=== PATIENT | female | born 1970 | race Caucasian/White ===

== ENCOUNTER 2017-06-29 05:51 | Emergency (ER) | payer BC ==
[2017-06-29 05:53] VITALS: BMI 49.9
[2017-06-29 06:13] VITALS: RESP 20; O2SAT 97
--- NOTE | 2017-06-29 06:24 | C.PDOC ---
History Of Present Illness Patient is a 47 y/o female who presents to the ED BIBA with complaints of cough , sore throat, body aches, and dizziness. Patient notes feeling hypertensive. Time Seen by Provider: 06/29/17 06:16 Chief Complaint (Nursing): Flu-like Symptoms History Per: Patient History/Exam Limitations: no limitations Location Of Pain: Throat, Diffuse Myalgias Associated Symptoms: Sore Throat, Cough, Myalgias Recent travel outside of the [place]: No Past Medical History Reviewed: Historical Data, Nursing Documentation, Vital Signs Vital Signs: Last Vital Signs Temp 99.0 F 06/29/17 06:03 Pulse 97 H 06/29/17 06:03 Resp 20 06/29/17 06:03 BP 143/82 06/29/17 06:03 Pulse Ox 97 06/29/17 06:57 - Medical History PMH: Gall Bladder Disease, HTN, TIA (2 years ago) Denies: Chronic Kidney Disease Surgical History: Cholecystectomy - [facility] Procedures DX ULTRASOUND-HEART (06/08/13) OTHER ESOPHAGOSCOPY (06/08/13) Family History: States: No Known Family Hx - Social History Hx Tobacco Use: Yes (light smoker) Hx Alcohol Use: No Hx Substance Use: No - Immunization History Hx Tetanus Toxoid Vaccination: Yes Hx Influenza Vaccination: No Hx Pneumococcal Vaccination: No Review Of Systems ENT: Positive for: Throat Pain Respiratory: Positive for: Cough Musculoskeletal: Positive for: Other (diffuse myalgias) Neurological: Positive for: Dizziness Physical Exam - Physical Exam Appears: Well, Non-toxic, No Acute Distress Skin: Warm, Dry Oral Mucosa: Moist Throat: Erythema (mild to pharynx) Chest: Symmetrical Cardiovascular: Rhythm Regular, No Murmur Respiratory: Normal Breath Sounds, No Rales, No Rhonchi, No Wheezing Neurological/Psych: Oriented x3, Normal Speech, Normal Cognition, Other (no focal deficits) ED Course And Treatment O2 Sat by Pulse Oximetry: 97 Medical Decision Making Medical Decision Making: Plan: * Tamiflu Patient advised to take medication as directed and to follow up with PMD if symptoms persist. Patient to be discharged. Disposition Counseled Patient/Family Regarding: Need For Followup, Rx Given - Disposition Disposition: HOME/ ROUTINE Disposition Time: 06:55 Condition: GOOD Additional Instructions: You have Influenza. Take Tamiflu twice a day for 5 days Take Tylenol or Motrin alternating every 4-6 hours for Fever 100.4F or higher. Rest and drink plenty of fluids. Follow up with your primary medical doctor or clinic in 2-5 days for further evaluation. Prescriptions: Ondansetron ODT [Zofran ODT] 1 odt PO BID PRN #6 odt PRN Reason: Nausea/Vomiting Oseltamivir [Tamiflu] 75 mg PO BID #10 cap Instructions: Influenza (ED) Forms: [facility] (Lithuanian) - POA Present On Arrival: None - Clinical Impression Clinical Impression: Influenza - Scribe Statement The provider has reviewed the documentation as recorded by the Scribe Lyly Pool All medical record entries made by the Scribe were at my direction and personally dictated by me. I have reviewed the chart and agree that the record accurately reflects my personal performance of the history, physical exam, medical decision making, and the department course for this patient. I have also personally directed, reviewed, and agree with the discharge instructions and disposition.
[2017-06-29 07:13] VITALS: BP 128/78; PULSE 91; TEMP 98.1
== END 2017-06-29 07:13 | disposition home or self-care (01) ==
LOC: C.ER 05:51
DX: J11.1 Influenza due to unidentified influenza virus with other respiratory manifestations (principal); I10 Essential (primary) hypertension; F17.210 Nicotine dependence, cigarettes, uncomplicated

== ENCOUNTER 2018-04-26 13:40 | Inpatient (IN) | payer BC ==
[2018-04-26 13:40] VITALS: BMI 49.9
--- NOTE | 2018-04-26 14:23 | C.PDOC ---
History Of Present Illness 48 year old female with PMHx of IBS, depression, HTN and sciatica, presents to the ED complaining of burning and throbbing abdominal pain with associated chills, diarrhea and vomiting since yesterday at 15:00. Reports the pain feels like when she has IBS but worse and it started after she ate turkey and sweet potatoes. Denies any chest pain, shortness of breath, fever, urinary symptoms, chest pain, back pain, or any other complaints. PMD: Dr. Mcmanus Time Seen by Provider: 04/26/18 14:19 Chief Complaint (Nursing): Abdominal Pain History Per: Patient History/Exam Limitations: no limitations Onset/Duration Of Symptoms: Days (1) Current Symptoms Are (Timing): Still Present Context: Food Location Of Pain/Discomfort: Epigastric, LUQ Radiation Of Pain To:: None Quality Of Discomfort: Burning, Other (throbbing ) Associated Symptoms: Chills, Vomiting. denies: Fever, Nausea, Diarrhea, Back Pain, Chest Pain, Constipation, Urinary Symptoms Past Medical History Reviewed: Historical Data, Nursing Documentation, Vital Signs Vital Signs: Last Vital Signs Temp 98.9 F 04/26/18 13:54 Pulse 114 H 04/26/18 13:54 Resp 20 04/26/18 13:54 BP 135/80 04/26/18 13:54 Pulse Ox 96 04/26/18 13:54 - Medical History PMH: Gall Bladder Disease, HTN, TIA (2 years ago) Denies: Chronic Kidney Disease Other PMH: IBS Surgical History: Cholecystectomy - [facility] Procedures DX ULTRASOUND-HEART (06/08/13) OTHER ESOPHAGOSCOPY (06/08/13) Family History: States: No Known Family Hx - Social History Hx Tobacco Use: Yes (light smoker) Hx Alcohol Use: No Hx Substance Use: No - Immunization History Hx Tetanus Toxoid Vaccination: Yes Hx Influenza Vaccination: No Hx Pneumococcal Vaccination: No Review Of Systems Constitutional: Positive for: Chills. Negative for: Fever Cardiovascular: Negative for: Chest Pain Respiratory: Negative for: Shortness of Breath Gastrointestinal: Positive for: Nausea, Vomiting, Abdominal Pain (epigastric and LUQ). Negative for: Diarrhea, Constipation, Melena, Hematemesis Genitourinary: Negative for: Dysuria, Hematuria Musculoskeletal: Negative for: Back Pain Physical Exam - Physical Exam Appears: Non-toxic Skin: Warm, Dry, No Rash Head: Normacephalic Eye(s): bilateral: Normal Inspection Nose: Normal Oral Mucosa: Moist Neck: Supple Chest: Symmetrical Cardiovascular: Rhythm Regular Respiratory: No Rales, No Rhonchi, No Wheezing Gastrointestinal/Abdominal: Soft, Tenderness (epigastric and LUQ), No Distention, No Guarding, No Rebound Extremity: Bilateral: Atraumatic, Normal Color And Temperature, Normal ROM Pulses: Left Dorsalis Pedis: Normal, Right Dorsalis Pedis: Normal Neurological/Psych: Oriented x3, Normal Speech Gait: Steady ED Course And Treatment - Laboratory Results Result Diagrams: 04/26/18 15:07 04/26/18 15:07 O2 Sat by Pulse Oximetry: 96 (RA) Pulse Ox Interpretation: Normal Reevaluation Time: 15:40 Reassessment Condition: Improved Medical Decision Making Medical Decision Makin yr old female w/ hx of IBS, sciatica p/w abdominal pain, diarrhea, n/v. Multiple episodes. Does not feel like her previous IBS. Well appearing on exam. No recent abx. ?viral gastro Orders: - CT abd/pel - Bloodwork - Toradol 30mg IVP - Zofran 4mg IVP - IV fluids - POC - UA WBC 21k- non septic appearing however. BC ordered fluids running. 1702 Lactic unremarkable UTI 9 CT largely unremarkable: ?cirrhosis- however no ascities on exam. Urine culture ordered xray unremarkable abx running Clinically pt is stable, non sick appearing. Given WBC elevated however, will seek obs appreciate consult w/ DR. Mendoza: to admit to his service pt agreeable Disposition - Disposition Disposition Time: 17:50 Condition: GOOD Forms: [facility] (Ugandan) - Clinical Impression Clinical Impression: UTI (urinary tract infection), Gastritis - Scribe Statement The provider has reviewed the documentation as recorded by the Scribe Sirena Larkin All medical record entries made by the Scribe were at my direction and personally dictated by me. I have reviewed the chart and agree that the record accurately reflects my personal performance of the history, physical exam, medical decision making, and the department course for this patient. I have also personally directed, reviewed, and agree with the discharge instructions and disposition.
[2018-04-26 15:10] LABS: BASO # 0.1 K/uL (0.0-0.2); BASO % 0.3 % (0.0-2.0); EOS % 0.1 % (0.0-4.0); HEMOGLOBIN 15.5 g/dL (11.0-16.0); LYMPH # 2.5 K/uL (1.0-4.3); LYMPH % 11.4 % (20.0-40.0); MEAN CELL VOLUME 83.1 fL (81.0-99.0); MEAN CORPUSCULAR HEMOGLOBIN 28.2 pg (27.0-31.0); MEAN CORPUSCULAR HGB CONC 33.9 g/dL (33.0-37.0); MEAN PLATELET VOLUME 8.3 fL (7.2-11.7); MONO # 0.6 K/uL (0.0-0.8); MONO % 2.6 % (0.0-10.0); NEUT # 18.5 K/uL (1.8-7.0); NEUT % 85.6 % (50.0-75.0); NRBC % 0.1 % (0.0-2.0); RBC 5.48 Mil/uL (3.80-5.20); RED CELL DISTRIBUTION WIDTH 15.1 % (11.5-14.5)
[2018-04-26 15:18] LABS: WHITE BLOOD COUNT 21.6 K/uL (4.8-10.8)
[2018-04-26] MEDS: Sodium Chloride 0.9% 1,000 ML IV SCH (15:18)
[2018-04-26 15:24] LABS: ALB/GLOB RATIO 0.9 (1.0-2.1); ALBUMIN 4.3 g/dL (3.5-5.0); ALT/SGPT 58 U/L (9-52); AST/SGOT 47 U/L (14-36); BLOOD UREA NITROGEN 29 mg/dL (7-17); GFR NON-AFRICAN AMERICAN 59; LIPASE 52 U/L (23-300)
[2018-04-26] MEDS ORDERED: Iodixanol 320 MG/ML 100 ML BOTTLE IV ONE (15:30)
[2018-04-26 16:27] LABS: VENOUS BLOOD GAS BASE EXCESS 0.3 mmol/L (0.0-2.0); VENOUS BLOOD GAS PCO2 48 mmHg (40-60); VENOUS BLOOD GAS PO2 30 mm/Hg (30-55); VENOUS BLOOD PH 7.35 (7.32-7.43)
[2018-04-26] MEDS ORDERED: Iohexol 350mg/ml 100 ML ONE (16:32)
[2018-04-26 16:38] LABS: SQUAMOUS EPITHIAL 55 /hpf (0-5); URINE BACTERIA MANY (<OCC); URINE BILIRUBIN 1+ (NEGATIVE); URINE BLOOD NEGATIVE (NEGATIVE); URINE CLARITY Hazy (Clear); URINE COLOR Amber (YELLOW); URINE GLUCOSE (UA) NORMAL (Normal); URINE LEUKOCYTE ESTERASE 2+ Leu/uL (Negative); URINE PROTEIN 2+ mg/dL (NEGATIVE); WBC CLUMPS FEW /hpf
[2018-04-26] MEDS ORDERED: cefTRIAXone IV 1 gm in Dextros 50 ML IVPB STA (17:01)
--- NOTE | 2018-04-26 17:03 | CT ---
Date of service: 04/26/2018 PROCEDURE: CT Abdomen and Pelvis with contrast HISTORY: abd pain, epigastric, luq, diarrhea COMPARISON: None. TECHNIQUE: Contrast dose: 100 mL Omnipaque 350 Radiation dose: Total exam DLP = 1066.46 mGy-cm. This CT exam was performed using one or more of the following dose reduction techniques: Automated exposure control, adjustment of the mA and/or kV according to patient size, and/or use of iterative reconstruction technique. FINDINGS: LOWER THORAX: Unremarkable. LIVER: Mildly nodular hepatic contour raising the possibility of hepatic cirrhosis. No mass. No biliary dilatation. GALLBLADDER AND BILE DUCTS: Cholecystectomy PANCREAS: Unremarkable. No gross lesion or ductal dilatation. SPLEEN: Unremarkable. ADRENALS: Unremarkable. No mass. KIDNEYS AND URETERS: Unremarkable. No hydronephrosis. No solid mass. VASCULATURE: Unremarkable. No aortic aneurysm. No aortic atherosclerotic calcification or mural plaque present. BOWEL: There is circumferential mural thickening of multiple loops of small bowel in the mid abdomen and left abdomen consistent with nonspecific enteritis. There is no bowel obstruction. No other abnormal bowel loops are appreciated. APPENDIX: Normal appendix. PERITONEUM: Mild ascites. LYMPH NODES: Unremarkable. No enlarged lymph nodes. BLADDER: Decompressed REPRODUCTIVE: Hysterectomy BONES: No acute fracture. OTHER FINDINGS: None. IMPRESSION: Possible hepatic cirrhosis. Nonspecific enteritis. Mild ascites. Cholecystectomy and hysterectomy.
[2018-04-26] MEDS ORDERED: cefTRIAXone 1 gm 1 GM/100 ML BAG IVPB ONE (17:10)
--- NOTE | 2018-04-26 18:14 | RAD ---
Date of service: 04/26/2018 HISTORY: elveated wbc COMPARISON: 03/05/2016 TECHNIQUE: Chest PA and lateral FINDINGS: LUNGS: No active pulmonary disease. PLEURA: No significant pleural effusion identified. No pneumothorax apparent. CARDIOVASCULAR: No aortic atherosclerotic calcification present. Normal cardiac size. No pulmonary vascular congestion. OSSEOUS STRUCTURES: No significant abnormalities. VISUALIZED UPPER ABDOMEN: Normal. OTHER FINDINGS: None. IMPRESSION: No active disease.
[2018-04-26] MEDS: metroNIDAZOLE IV 500 mg/100 ml 500 MG/100 ML BAG IVPB SCH (20:00)
[2018-04-26] MEDS ORDERED: metroNIDAZOLE IV 500 mg/100 ml 500 MG/100 ML BAG ONE (20:05)
[2018-04-26] MEDS: Dextrose 5%/0.45% NS 1,000 ML IV SCH (22:33)
[2018-04-27] MEDS: Sodium Chloride 0.9% 1,000 ML IV SCH (01:35)
[2018-04-27] MEDS: metroNIDAZOLE IV 500 mg/100 ml 500 MG/100 ML BAG IVPB SCH ×3 (04:08→19:33)
[2018-04-27 05:26] LABS: BASO # 0.1 K/uL (0.0-0.2); BASO % 0.7 % (0.0-2.0); EOS # 0.2 K/uL (0.0-0.7); EOS % 1.2 % (0.0-4.0); LYMPH # 3.9 K/uL (1.0-4.3); LYMPH % 23.4 % (20.0-40.0); MEAN CELL VOLUME 83.7 fL (81.0-99.0); MEAN CORPUSCULAR HEMOGLOBIN 27.5 pg (27.0-31.0); MEAN CORPUSCULAR HGB CONC 32.9 g/dL (33.0-37.0); MEAN PLATELET VOLUME 8.3 fL (7.2-11.7); MONO # 0.9 K/uL (0.0-0.8); MONO % 5.5 % (0.0-10.0); NEUT # 11.5 K/uL (1.8-7.0); NEUT % 69.2 % (50.0-75.0); RBC 4.37 Mil/uL (3.80-5.20); RED CELL DISTRIBUTION WIDTH 15.3 % (11.5-14.5); WHITE BLOOD COUNT 16.7 K/uL (4.8-10.8)
[2018-04-27] MEDS: Dextrose 5%/0.45% NS 1,000 ML IV SCH ×2 (05:30→19:12)
[2018-04-27 05:54] LABS: ALBUMIN 3.4 g/dL (3.5-5.0); ALT/SGPT 64 U/L (9-52); AST/SGOT 61 U/L (14-36); BLOOD UREA NITROGEN 29 mg/dL (7-17); CALCIUM 7.8 mg/dl (8.6-10.4); GFR NON-AFRICAN AMERICAN > 60
[2018-04-27] MEDS ORDERED: Potassium Ch 20mEq in D5-1/2NS 1,000 ML IV SCH (07:45)
[2018-04-27] MEDS: cefTRIAXone IV 1 gm in Dextros 50 ML IVPB SCH (10:41)
[2018-04-27 16:58] LABS: INR 1.2; PROTHROMBIN TIME 13.5 SECONDS (9.7-12.2)
[2018-04-27 17:05] LABS: AMYLASE 48 U/L (30-110); LIPASE 64 U/L (23-300)
--- NOTE | 2018-04-27 20:04 | CON ---
DATE: 04/27/2018 REFERRING PHYSICIAN: Binta Mendoza MD. SUBJECTIVE: I was called for a GI consultation by the admitting MD. The patient is seen and fully examined in the emergency room as requested also by the ER staff on 04/27/2018. The entire chart is reviewed including but not limited to most recent lab and radiology study results, current and the previous medication list, current and the previous medical events. Case discussed with the staff at length. HISTORY OF PRESENT ILLNESS: This 48-year-old female was admitted to the hospital through the emergency room with a main complaint of severe midepigastric pain, burning in nature with with nausea, vomiting, dyspepsia, chills and diarrhea with generalized weakness and malaise for the last several hours prior to her admission. On record, the patient denied any actual chest pain, palpitation, significant shortness of breath, chills or fever initially. No reported active bleeding. PAST MEDICAL HISTORY: The past medical history including but not limited to, 1. Hypertension. 2. Gall bladder disorder. 3. Reported irritable bowel syndrome. 4. Depression 5. Peptic ulcer disease. 6. Sciatica. 7. Reported TIA 2 years ago with mild obesity. 8. The patient has status post cholecystectomy. 9. The last endoscopic evaluation of the lower GI tract done about 5-6 years ago according to the patient's statement to with possible small few diverticula, done in one of the [facility]. CURRENT MEDICATIONS: Post admission medication lists were reviewed. SOCIAL HISTORY: Positive for cigarette smoking, but no alcohol intake recently. LABORATORY DATA: Initial blood workup at the time of the admission showed leukocytosis of 21.6 which went down today to about 16 with subsequent drop of hemoglobin and hematocrit mildly with IV fluids and IV antibiotics. Initial blood workup also so showed elevated blood glucose level 167, BUN 29, creatinine 1. The abdominal and pelvic CT scan showed possible and questionable liver cirrhosis. Urine analysis was for possible urinary tract infection. PHYSICAL EXAMINATION: GENERAL: A 48-year-old female, awake, alert, oriented. VITAL SIGNS: Afebrile at the time she was seen by me with pulse of 102, respiratory rate 20-22, blood pressure 130/74. The patient is still complaining of midepigastric pain, severe and such with left and right lower quadrant tenderness. HEENT: Showed mildly dry oral mucous membrane. Nonicteric sclerae. LUNGS: Few scattered mild crepitation. Breathing sounds are present to bilaterally. HEART: Positive S1 and S2 with increased rate. ABDOMEN: Mildly obese, mildly distended with diffuse tenderness but mainly severe at the midepigastric area as well as left lower quadrant area. No mass or organomegaly could be appreciated, however, and no rebound tenderness or guarding. RECTAL EXAMINATION: Rectal vault empty. EXTREMITIES: Without significant clubbing, cyanosis or edema. NEUROLOGIC: No reported new neurological deficits, sensory or motor. No reported new focal deficits. It has to be mentioned that on admission the patient was found to have elevated liver function test of ALT and AST as well as some abnormal alkaline phosphatase results. IMPRESSION: 1. Re-exacerbation of peptic ulcer disease, acute, to rule out gastric versus duodenal ulcer. 2 Rule out acute pancreatitis with possible biliary tree disorder despite the outcome of the CAT scan of the abdomen and pelvis. 3. Diarrhea, infectious versus mechanical keeping in mind that the patient was diagnosed several years ago of possible diverticulosis as per her description with possible acute diverticulitis versus re-exacerbation of inflammatory bowel disease. 4. Known history of hypertension, status post cholecystectomy, transient ischemic attack, depression with sciatica. 5. Abnormal liver function tests to rule out possible chemical hepatitis versus viral hepatitis, however, abnormal liver function test could be secondary to infectious process as the patient did have leukocytosis. 6. Reported possible liver cirrhosis by CAT scan of the abdomen and pelvis of unclear etiology. SUGGESTIONS: 1. Agree with your plan. 2. Hepatitis profile. 3. Cancer markers. 4. Complete stool workup. 5. Ammonia level. 6. At current n.p.o. 7. Reglan IV. 8. Endoscopic evaluation of the GI tract when the patient is more stable clinically. 9. Further recommendation to follow. Thank you for letting me participate in your patient's case management. Elizabeth Kennedy MD
[2018-04-27] MEDS: Potassium Ch 20mEq in D5-1/2NS 1,000 ML IV SCH (21:40)
[2018-04-28] MEDS: metroNIDAZOLE IV 500 mg/100 ml 500 MG/100 ML BAG IVPB SCH ×3 (03:26→18:30)
[2018-04-28] MEDS ORDERED: Pneumococcal 23-Valent Vaccine IM ONE (06:32)
[2018-04-28 07:55] LABS: HEPATITIS B SURFACE AG Negative (NEGATIVE)
[2018-04-28 08:01] LABS: HEPATITIS A IGM NEGATIVE (NEGATIVE); HEPATITIS B CORE AB NEGATIVE (NEGATIVE)
[2018-04-28 08:13] LABS: HEPATITIS C ANTIBODY NEGATIVE (NEGATIVE)
[2018-04-28] MEDS: Potassium Ch 20mEq in D5-1/2NS 1,000 ML IV SCH ×2 (09:11→17:36)
[2018-04-28] MEDS: buPROPion 150 mg/24 Hours XL Tab PO SCH (09:15)
[2018-04-28] MEDS: Vancomycin 1.5 GM in Sodium Chloride 0.9% 500 ML IVPB SCH ×2 (10:55→22:00)
[2018-04-28] MEDS: cefTRIAXone IV 1 gm in Dextros 50 ML IVPB SCH (11:22)
[2018-04-28 11:37] LABS: HDL CHOLESTEROL 36 mg/dL (30-70)
[2018-04-28 11:48] LABS: LDL CHOLESTEROL 88 mg/dL (0-129)
[2018-04-28 12:15] LABS: ALPHA FETO PROTEIN 2.5 ng/mL (0.0-7.5)
[2018-04-28 12:29] LABS: HIV 1&2 ANTIBODY NEGATIVE (NEGATIVE)
[2018-04-28] MEDS ORDERED: Propofol 10 mg/ml Inj (20 ML) ONE (12:31)
[2018-04-28] MEDS ORDERED: Lidocaine Hydrochloride 5 ML INJ ONE (12:31)
--- NOTE | 2018-04-28 12:58 | CP.PCM.PN ---
Subjective - Date & Time of Evaluation Date of Evaluation: 04/28/18 Time of Evaluation: 13:04 - Subjective Subjective: PGY3 Note for Dr. Watson Patient seen and examined at bedside this AM; denies all complaints; states belly pain is improved and has not had any episodes of diarrhea; denies fevers/chills, DAVIDSON, CP, SOB, or lower extremity pain/swelling. Objective - Vital Signs/Intake and Output Vital Signs (last 24 hours): Temp Pulse Resp BP Pulse Ox 98.6 F 86 20 114/81 97 04/28/18 07:28 04/28/18 07:28 04/28/18 07:28 04/28/18 07:28 04/28/18 07:28 Intake and Output: 04/28/18 04/28/18 06:59 18:59 Intake Total 800 Balance 800 - Medications Medications: Current Medications Bupropion HCl (Wellbutrin Xl) 300 mg PO DAILY [facility] Last Admin: 04/28/18 09:15 Dose: Not Given Dicyclomine HCl (Bentyl) 20 mg PO QID [facility] Last Admin: 04/28/18 09:16 Dose: Not Given Famotidine (Pepcid) 20 mg IVP DAILY [facility] Last Admin: 04/28/18 09:09 Dose: 20 mg Metronidazole (Flagyl) 500 mg in 100 mls @ 100 mls/hr IVPB Q8H [facility]; Protocol Last Admin: 04/28/18 11:23 Dose: Not Given Ceftriaxone Sodium (Rocephin Iv 1 Gm Duplex) 50 mls @ 100 mls/hr IVPB DAILY [facility]; Protocol Last Admin: 04/28/18 11:22 Dose: Not Given Potassium Chloride/Dextrose/Sod Cl (Potassium Chl 20 Meq In D5-1/2ns) 1,000 mls @ 100 mls/hr IV .Q10H [facility] Last Admin: 04/28/18 09:11 Dose: Not Given Vancomycin HCl 1.5 gm/ Sodium (Chloride) 500 mls @ 167 mls/hr IVPB Q12 [facility]; Protocol Last Admin: 04/28/18 10:55 Dose: 167 mls/hr Gentamicin Sulfate/Sodium Chloride (Gentamicin 100mg/100ml Ns) 100 mg in 100 mls @ 100 mls/hr IVPB Q8H [facility]; Protocol Metoclopramide HCl (Reglan) 5 mg IVP Q6H [facility] Ondansetron HCl (Zofran Inj) 4 mg IVP Q6 PRN PRN Reason: Nausea/Vomiting Last Admin: 04/27/18 14:30 Dose: 4 mg Pantoprazole Sodium (Protonix Inj) 40 mg IVP DAILY [facility] Last Admin: 04/28/18 09:09 Dose: 40 mg - Labs Labs: 04/27/18 05:21 04/27/18 05:21 PT 13.5 SECONDS (9.7-12.2) H 04/27/18 16:47 INR 1.2 04/27/18 16:47 APTT 30 SECONDS (21-34) 04/27/18 16:47 - Constitutional Appears: Well, Non-toxic, No Acute Distress - Head Exam Head Exam: ATRAUMATIC - Eye Exam Eye Exam: EOMI, Normal appearance, PERRL Pupil Exam: PERRL - ENT Exam ENT Exam: Mucous Membranes Moist - Neck Exam Neck Exam: Full ROM, Lymphadenopathy - Respiratory Exam Respiratory Exam: Clear to Ausculation Bilateral, NORMAL BREATHING PATTERN. absent: Rales, Rhonchi, Wheezes - Cardiovascular Exam Cardiovascular Exam: REGULAR RHYTHM, +S1, +S2 - GI/Abdominal Exam GI & Abdominal Exam: Soft, Normal Bowel Sounds - Extremities Exam Extremities Exam: Full ROM. absent: Calf Tenderness - Back Exam Back Exam: CVA tenderness (L), NORMAL INSPECTION - Neurological Exam Neurological Exam: Alert, Awake, Normal Gait, Oriented x3 - Skin Skin Exam: Warm Assessment and Plan - Assessment and Plan (Free Text) Assessment: 48yo F admitted for abdominal pain, and diarrhea Abdominal Pain -LFTs mildly elevated -normal AFP, CEA, Lipid Panel WNL, HIV neg, RPR negative, Hep Panel negative -flu negative -patient has known history of IBS; diarrhea type; metronidazole 500mg daily -patient NPO for procedure with Dr. Gonzalez, GI; thank you for your help Elevated AST/ALT with radiographic evidence of cirrhosis -f/u alpha antitrypsin, PORFIRIO, Mitochondrial, smooth muscle, copper/ceruloplasmin -nonsmoker, no history of liver disorders in family Gram + Bacteremia -Vanco 1.5g daily -f/u repeat bcx -wbc downtrending Hx of HTN -held bp meds on admission Hx of Depression -c/w buproprion daily Proph -PUD-->protonix -Heparin SC Case discussed and seen with Dr. Kelly Carcamo PGY3
[2018-04-28] MEDS: Gentamicin 100mg/100ml NS 100 MG/100 ML BAG IVPB SCH ×2 (14:34→21:00)
[2018-04-28 15:52] VITALS: RESP 20
--- NOTE | 2018-04-28 20:53 | CP.PCM.CON ---
History of Present Illness - History of Present Illness History of Present Illness: dictated Past Patient History - Past Medical History & Family History Past Medical History?: Yes - Past Social History Smoking Status: Never Smoked - CARDIAC Hx Hypertension: Yes - PULMONARY Hx Respiratory Disorders: No - NEUROLOGICAL Hx Transient Ischemic Attacks (TIA): Yes (2 years ago) - HEENT Hx HEENT Problems: No - RENAL Hx Chronic Kidney Disease: No - ENDOCRINE/METABOLIC Hx Endocrine Disorders: No - HEMATOLOGICAL/ONCOLOGICAL Hx Blood Disorders: No - INTEGUMENTARY Hx Dermatological Problems: No - MUSCULOSKELETAL/RHEUMATOLOGICAL Hx Falls: No - GASTROINTESTINAL Hx Gall Bladder Disease: Yes - GENITOURINARY/GYNECOLOGICAL Hx Genitourinary Disorders: No - PSYCHIATRIC Hx Substance Use: No - SURGICAL HISTORY Hx Cholecystectomy: Yes - ANESTHESIA Hx Anesthesia: Yes Hx Anesthesia Reactions: No Meds Allergies/Adverse Reactions: Allergies Allergy/AdvReac Type Severity Reaction Status Date / Time ciprofloxacin [From Cipro] Allergy throat Verified 04/26/18 13:57 swelling - Medications Medications: Current Medications Bupropion HCl (Wellbutrin Xl) 300 mg PO DAILY [facility] Last Admin: 04/28/18 09:15 Dose: Not Given Dicyclomine HCl (Bentyl) 20 mg PO QID [facility] Last Admin: 04/28/18 17:36 Dose: 20 mg Famotidine (Pepcid) 20 mg IVP DAILY [facility] Last Admin: 04/28/18 09:09 Dose: 20 mg Heparin Sodium (Porcine) (Heparin) 5,000 units SC Q8 [facility] Last Admin: 04/28/18 14:06 Dose: 5,000 units Hydrochlorothiazide (Hydrodiuril) 25 mg PO DAILY [facility] Metronidazole (Flagyl) 500 mg in 100 mls @ 100 mls/hr IVPB Q8H [facility]; Protocol Last Admin: 04/28/18 18:30 Dose: 100 mls/hr Potassium Chloride/Dextrose/Sod Cl (Potassium Chl 20 Meq In D5-1/2ns) 1,000 mls @ 100 mls/hr IV .Q10H [facility] Last Admin: 04/28/18 17:36 Dose: 100 mls/hr Vancomycin HCl 1.5 gm/ Sodium (Chloride) 500 mls @ 167 mls/hr IVPB Q12 [facility]; Protocol Last Admin: 04/28/18 10:55 Dose: 167 mls/hr Gentamicin Sulfate/Sodium Chloride (Gentamicin 100mg/100ml Ns) 100 mg in 100 mls @ 100 mls/hr IVPB Q8H [facility]; Protocol Last Admin: 04/28/18 14:34 Dose: 100 mls/hr Lisinopril (Zestril) 20 mg PO DAILY [facility] Metoclopramide HCl (Reglan) 5 mg IVP Q6H [facility] Last Admin: 04/28/18 18:35 Dose: 5 mg Ondansetron HCl (Zofran Inj) 4 mg IVP Q6 PRN PRN Reason: Nausea/Vomiting Last Admin: 04/27/18 14:30 Dose: 4 mg Pantoprazole Sodium (Protonix Inj) 40 mg IVP DAILY [facility] Last Admin: 04/28/18 09:09 Dose: 40 mg Results - Vital Signs Recent Vital Signs: Last Vital Signs Temp 98.5 F 04/28/18 15:00 Pulse 90 04/28/18 15:00 Resp 20 04/28/18 15:00 BP 124/78 04/28/18 15:00 Pulse Ox 96 04/28/18 15:00 - Labs Result Diagrams: 04/27/18 05:21 04/27/18 05:21 Labs: Laboratory Results - last 24 hr 04/27/18 04/28/18 04/28/18 16:47 11:19 11:19 Triglycerides 113 D Cholesterol 147 LDL Cholesterol Direct 88 HDL Cholesterol 36 Alpha Fetoprotein 2.5 RPR Hepatitis A IgM Ab Negative Hep Bs Antigen Negative Hep B Core IgM Ab Negative Hepatitis C Antibody Negative HIV 1&2 Antibody Screen Negative 04/28/18 11:19 Triglycerides Cholesterol LDL Cholesterol Direct HDL Cholesterol Alpha Fetoprotein RPR Nonreactive Hepatitis A IgM Ab Hep Bs Antigen Hep B Core IgM Ab Hepatitis C Antibody HIV 1&2 Antibody Screen
[2018-04-29] MEDS: metroNIDAZOLE IV 500 mg/100 ml 500 MG/100 ML BAG IVPB SCH ×3 (02:39→19:00)
[2018-04-29] MEDS: Potassium Ch 20mEq in D5-1/2NS 1,000 ML IV SCH ×3 (03:30→13:35)
--- NOTE | 2018-04-29 04:37 | CON ---
DATE: 04/28/2018 I was called in for positive blood cultures. HISTORY OF PRESENT ILLNESS: This patient is a 48-year-old female. She has history of irritable bowel disease, depression, hypertension, and sciatica. She came in with burning abdominal pain associated with chills and diarrhea, and she was vomiting. She reported the pain, which was worse, as she has had IBS and had similar pain before. She was admitted on 04/26/2018 with history of eating turkey and sweet potatoes and started with having diarrhea and vomiting. She denied any fever, did complain of some chills. Denies any chest pain. No back pain. No shortness of breath. Did have some abdominal pain. Denies any fever. The patient has positive blood cultures, hence I am asked to see her. She came in with epigastric pain. She also complains of some suprapubic pain. Denied any frequency or urgency with urination, but she was afebrile, but admitted with heart rate of 114, blood pressure 135/80, and pulse oximetry of 96. PAST MEDICAL HISTORY: Significant for gallbladder disease, hypertension, TIA, and history of fibroids. Denies any chronic kidney disease. PAST SURGICAL HISTORY: Significant for cholecystectomy. SOCIAL HISTORY: She is a light smoker. Denies alcohol abuse. Denies substance abuse. FAMILY HISTORY: Noncontributory. REVIEW OF SYSTEMS: She has not had any flu vaccine so far. She had chills. No fever. No headaches. No swallowing problems. No respiratory issues. No shortness of breath. Did have nausea, vomiting, and abdominal pain. No diarrhea. No constipation. No melena. Denies any urinary symptoms, but she has had UTIs in the past. Denies any joint pains. PHYSICAL EXAMINATION: VITALS SIGNS: Show T-max is 98.5 today, heart rate of 90, blood pressure 124/78, and respirations are 20. She is morbidly obese. Her weight is 300 pounds. HEENT: Head is atraumatic, normocephalic. Pupils are reacting to light. No pallor present. No icterus. Tongue is moist. NECK: Supple. JVP is flat. LUNGS: Clear. No crackles or rales are present. HEART: S1, S2, regular. No murmurs appreciated. ABDOMEN: Soft. Mild epigastric and left upper quadrant tenderness present. No guarding, no rigidity present. Mild suprapubic tenderness present. EXTREMITIES: No edema, clubbing, or cyanosis. LABORATORY DATA: Her white count is 21.6, hemoglobin 15.5, hematocrit 45.6, and platelet count of 351. BUN is 29, creatinine is 1, glucose is 167, and she had . White count and lactic acid were unremarkable, but also she had septic workup done and blood cultures have now come back two sets positive. Urine culture is negative. On exam of the labs, white count yesterday was 16.7, hemoglobin 12, hematocrit 36.6, and platelet count was 241. UA shows 2+ leukocytes, WBC 146, RBC 12. Chemistry shows potassium was 3.3, should be repeated tomorrow. LFTs are mildly elevated. She also had a chest x-ray done. Chest x-ray shows no active disease. The other report we were looking for, abdominal and pelvic CT, which shows there is circumferential mural thickening of multiple loops of small bowel in the mid abdomen and left abdomen, consistent with nonspecific enteritis. There is no bowel obstruction. No other abnormal bowel loops are appreciated. ASSESSMENT AND PLAN: Possible hepatic cirrhosis, nonspecific enteritis, mild ascites, cholecystectomy, and hysterectomy. On examination, she did come with high white count and left shift of the neutrophils, has nonspecific enteritis. She suffers from irritable bowel disease, but since she has elevated white count, we should do stool studies and I have put her on these cultures. I had put her on gentamicin and vancomycin, but at that time when I was dictating my final report, I find that the blood cultures, one of them has Staphylococcus epidermidis. If the other one also has Staphylococcus epidermidis and she does not have any metal or any surgery with prosthetic hardware or other issues, then probably I can discontinue gentamicin. At the present time, I will continue all the antibiotics as ordered and need to monitor white count and follow the white count as it remains elevated due to nonspecific enteritis. We will follow up. Nahomy Mata MD
[2018-04-29] MEDS: Gentamicin 100mg/100ml NS 100 MG/100 ML BAG IVPB SCH ×2 (05:17→14:24)
--- NOTE | 2018-04-29 09:16 | CP.PCM.PN ---
Subjective - Date & Time of Evaluation Date of Evaluation: 04/29/18 Time of Evaluation: 08:00 - Subjective Subjective: Progress Note for Dr. Watson Patient seen and examined at bedside this AM. Patient denies states she continues to have upper abdominal pain but it has improved since her admission. She states she continues to have episodes of diarrhea. She denies fever, chills, chest pain, shortness of breath, nausea, vomiting, dysuria or hematuria. Objective - Vital Signs/Intake and Output Vital Signs (last 24 hours): Temp Pulse Resp BP Pulse Ox 99 F 85 20 122/78 95 04/28/18 23:23 04/28/18 23:23 04/28/18 23:23 04/28/18 23:23 04/28/18 23:23 Intake and Output: 04/29/18 04/29/18 06:59 18:59 Intake Total 950 Balance 950 - Medications Medications: Current Medications Bupropion HCl (Wellbutrin Xl) 300 mg PO DAILY [facility] Last Admin: 04/28/18 09:15 Dose: Not Given Dicyclomine HCl (Bentyl) 20 mg PO QID [facility] Last Admin: 04/28/18 21:22 Dose: 20 mg Famotidine (Pepcid) 20 mg IVP DAILY [facility] Last Admin: 04/28/18 09:09 Dose: 20 mg Heparin Sodium (Porcine) (Heparin) 5,000 units SC Q8 [facility] Last Admin: 04/29/18 05:17 Dose: 5,000 units Hydrochlorothiazide (Hydrodiuril) 25 mg PO DAILY [facility] Metronidazole (Flagyl) 500 mg in 100 mls @ 100 mls/hr IVPB Q8H [facility]; Protocol Last Admin: 04/29/18 02:39 Dose: 100 mls/hr Potassium Chloride/Dextrose/Sod Cl (Potassium Chl 20 Meq In D5-1/2ns) 1,000 mls @ 100 mls/hr IV .Q10H [facility] Last Admin: 04/29/18 03:30 Dose: Not Given Vancomycin HCl 1.5 gm/ Sodium (Chloride) 500 mls @ 167 mls/hr IVPB Q12 [facility]; Protocol Last Admin: 04/28/18 22:00 Dose: 167 mls/hr Gentamicin Sulfate/Sodium Chloride (Gentamicin 100mg/100ml Ns) 100 mg in 100 mls @ 100 mls/hr IVPB Q8H [facility]; Protocol Last Admin: 04/29/18 05:17 Dose: 100 mls/hr Lisinopril (Zestril) 20 mg PO DAILY [facility] Metoclopramide HCl (Reglan) 5 mg IVP Q6H [facility] Last Admin: 04/29/18 06:40 Dose: 5 mg Ondansetron HCl (Zofran Inj) 4 mg IVP Q6 PRN PRN Reason: Nausea/Vomiting Last Admin: 04/27/18 14:30 Dose: 4 mg Pantoprazole Sodium (Protonix Inj) 40 mg IVP DAILY [facility] Last Admin: 04/28/18 09:09 Dose: 40 mg - Labs Labs: 04/27/18 05:21 04/27/18 05:21 PT 13.5 SECONDS (9.7-12.2) H 04/27/18 16:47 INR 1.2 04/27/18 16:47 APTT 30 SECONDS (21-34) 04/27/18 16:47 - Constitutional Appears: No Acute Distress - Head Exam Head Exam: ATRAUMATIC, NORMAL INSPECTION - Eye Exam Eye Exam: EOMI, Normal appearance - ENT Exam ENT Exam: Mucous Membranes Moist - Respiratory Exam Respiratory Exam: Clear to Ausculation Bilateral, NORMAL BREATHING PATTERN - Cardiovascular Exam Cardiovascular Exam: REGULAR RHYTHM, +S1, +S2 - GI/Abdominal Exam GI & Abdominal Exam: Soft, Tenderness (epigastric tenderness), Normal Bowel Sounds Additional comments: obese abdomen - Extremities Exam Extremities Exam: Normal Inspection - Neurological Exam Neurological Exam: Alert, Awake, Oriented x3 - Psychiatric Exam Psychiatric exam: Depressed - Skin Skin Exam: Normal Color Assessment and Plan - Assessment and Plan (Free Text) Assessment: Assessment: 48 year old female with past medical history of IBS, HTN, Depression was admitted 04/26/18 for abdominal pain and diarrhea. Plan: Abdominal Pain - possibly secondary to Enteritis, Criselda West Tear; Gastritis; Duodenitis, IBS - Normal AFP, CEA, Lipid Panel WNL, HIV neg, RPR negative, Hep Panel negative - Influenza negative - Patient has known history of IBS; diarrhea type; metronidazole 500mg daily - GI Consult: Dr. Gonzalez --> help appreciated - s/p upper endoscopy 04/28/18 - showed Criselda West Tear; Gastritis; Duodenitis (please see full report) - Pathology: Chronic active gastritis; Negative H. Pylori - ID Consult: Dr. Mata --> help appreciated - f/u stool culture; stool leukocytosis - Blood Culture: Coagulase Negative Staph --> possible contamination - Repeat Blood Culture (04/28/18): No growth - preliminary - f/u ECHO - Medications: * Vanco 1.5g daily * Metronidazole 500mg q8h * Gentamicin * Reglan 5mg IV q6h Leukocytosis - possibly secondary to Enteritis - Afebrile - wbc downtrending - Chest xray: Negative Elevated LFTs - Elevated AST/ALT with radiographic evidence of cirrhosis (please see full report) - f/u alpha antitrypsin, PORFIRIO, Mitochondrial, smooth muscle, copper/ceruloplasmin - nonsmoker, no history of liver disorders in family History of HTN - Continue home medications: * Lisinopril 20mg po daily * HCTZ 25mg po daily History of Depression -c/w buproprion daily Prophylaxis - Protonix 40mg IV daily - Heparin SC - Florastor 250mg bid - SCDs Case discussed and seen with Dr. Kelly Sun PGY-2
[2018-04-29] MEDS ORDERED: HYDROCHLOROTHIAZIDE PO SCH (10:00)
[2018-04-29] MEDS ORDERED: LISINOPRIL PO SCH (10:00)
[2018-04-29] MEDS: buPROPion 150 mg/24 Hours XL Tab PO SCH (10:26)
[2018-04-29] MEDS: Vancomycin 1.5 GM in Sodium Chloride 0.9% 500 ML IVPB SCH (10:29)
[2018-04-29 11:39] LABS: BASO # 0.1 K/uL (0.0-0.2); EOS # 0.3 K/uL (0.0-0.7); EOS % 3.4 % (0.0-4.0); HEMOGLOBIN 12.7 g/dL (11.0-16.0); LYMPH # 2.4 K/uL (1.0-4.3); LYMPH % 26.5 % (20.0-40.0); MEAN CELL VOLUME 83.9 fL (81.0-99.0); MEAN CORPUSCULAR HEMOGLOBIN 28.5 pg (27.0-31.0); MEAN PLATELET VOLUME 8.4 fL (7.2-11.7); MONO # 0.5 K/uL (0.0-0.8); MONO % 5.3 % (0.0-10.0); NEUT # 5.7 K/uL (1.8-7.0); NEUT % 63.8 % (50.0-75.0); RBC 4.44 Mil/uL (3.80-5.20); RED CELL DISTRIBUTION WIDTH 14.7 % (11.5-14.5); WHITE BLOOD COUNT 8.9 K/uL (4.8-10.8)
[2018-04-29 11:57] LABS: ALB/GLOB RATIO 0.9 (1.0-2.1); ALBUMIN 3.6 g/dL (3.5-5.0); ALT/SGPT 57 U/L (9-52); AST/SGOT 48 U/L (14-36); BLOOD UREA NITROGEN 5 mg/dL (7-17); CALCIUM 8.3 mg/dl (8.6-10.4); GFR NON-AFRICAN AMERICAN > 60
--- NOTE | 2018-04-29 14:42 | CP.PCM.PN ---
Subjective - Date & Time of Evaluation Date of Evaluation: 04/29/18 Time of Evaluation: 14:20 - Subjective Subjective: dictated Objective - Vital Signs/Intake and Output Vital Signs (last 24 hours): Temp Pulse Resp BP Pulse Ox 99 F 85 20 122/78 95 04/28/18 23:23 04/28/18 23:23 04/28/18 23:23 04/28/18 23:23 04/28/18 23:23 Intake and Output: 04/29/18 04/29/18 06:59 18:59 Intake Total 2265 Balance 2265 - Medications Medications: Current Medications Bupropion HCl (Wellbutrin Xl) 300 mg PO DAILY [facility] Last Admin: 04/29/18 10:26 Dose: 300 mg Dicyclomine HCl (Bentyl) 20 mg PO QID [facility] Last Admin: 04/29/18 14:05 Dose: 20 mg Heparin Sodium (Porcine) (Heparin) 5,000 units SC Q8 [facility] Last Admin: 04/29/18 13:08 Dose: 5,000 units Hydrochlorothiazide (Hydrodiuril) 25 mg PO DAILY [facility] Last Admin: 04/29/18 10:26 Dose: 25 mg Metronidazole (Flagyl) 500 mg in 100 mls @ 100 mls/hr IVPB Q8H [facility]; Protocol Last Admin: 04/29/18 12:08 Dose: 100 mls/hr Lisinopril (Zestril) 20 mg PO DAILY [facility] Last Admin: 04/29/18 10:26 Dose: 20 mg Metoclopramide HCl (Reglan) 5 mg IVP Q6H [facility] Last Admin: 04/29/18 13:07 Dose: 5 mg Pantoprazole Sodium (Protonix Inj) 40 mg IVP DAILY [facility] Last Admin: 04/29/18 10:27 Dose: 40 mg Saccharomyces Boulardii (Florastor) 250 mg PO BID [facility] - Labs Labs: 04/29/18 11:28 04/29/18 11:28 PT 13.5 SECONDS (9.7-12.2) H 04/27/18 16:47 INR 1.2 04/27/18 16:47 APTT 30 SECONDS (21-34) 04/27/18 16:47
--- NOTE | 2018-04-29 16:42 | CARD ---
APPROVED REPORT Date of service: 04/29/2018 EXAM: Two-dimensional and M-mode echocardiogram with Doppler and color Doppler. INDICATION CVA/TIA RISK FACTORS Hypertension 2D DIMENSIONS IVSd1.1 (0.7-1.1cm)LVDd4.3 (3.9-5.9cm) PWd0.9 (0.7-1.1cm)LA Amzymr49 (18-58mL) LVDs3.3 (2.5-4.0cm)FS (%) 23.2 % LVEF (%)46.8 (>50%)LVEF (Gomez's)45 % M-Mode DIMENSIONS Left Atrium (MM)3.61 (2.5-4.0cm)IVSd1.06 (0.7-1.1cm) Aortic Root3.51 (2.2-3.7cm)LVDd5.64 (4.0-5.6cm) Aortic Cusp Exc.2.16 (1.5-2.0cm)PWd0.97 (0.7-1.1cm) FS (%) 29 %LVDs4.01 (2.0-3.8cm) LVEF (%)55 (>50%) Mitral Valve MV E Amuofmin275.2cm/sMV A Rcocfori374.3cm/sE/A ratio1.0 TDI Lateral E' Peak V5.45cm/sMedial E' Peak V7.93cm/sE/Lateral E'20.4 E/Medial E'14.0 LEFT VENTRICLE The left ventricle is normal size. There is normal left ventricular wall thickness. Left ventricle is borderline. Apical hypokinesis Transmitral Doppler flow pattern is Grade I-abnormal relaxation pattern. Cannot rule out thrombus in left Ventricle. RIGHT VENTRICLE The right ventricle is normal size. There is normal right ventricular wall thickness. The right ventricular systolic function is normal. ATRIA The left atrium size is normal. The right atrium size is normal. AORTIC VALVE The aortic valve is not well visualized. No aortic regurgitation is present. There is no aortic valvular stenosis. MITRAL VALVE The mitral valve is not well visualized. There is no mitral valve stenosis. There is no mitral valve regurgitation noted. TRICUSPID VALVE The tricuspid valve is normal in structure. There is no tricuspid valve regurgitation noted. GREAT VESSELS The aortic root is normal in size. PERICARDIAL EFFUSION There is a trace pericardial effusion. <Conclusion> The left ventricle is normal size. There is normal left ventricular wall thickness. Left ventricle is borderline. Apical hypokinesis Transmitral Doppler flow pattern is Grade I-abnormal relaxation pattern. Cannot rule out thrombus in left Ventricle.
[2018-04-29] MEDS: Saccharomyces Boulardi 250 mg Cap PO SCH (17:55)
--- NOTE | 2018-04-29 19:46 | PN ---
DATE: 04/29/2018 LOCATION: 364, bed A. SUBJECTIVE: This is a 48-year-old female post upper endoscopy with biopsy, with reported active bleeding this morning, but no chest pain, palpitation, no significant shortness of breath. The entire chart is reviewed, including, but not limited to the most recent lab and radiology study results, current and the previous medication list, current and the previous medical events. Case discussed with the staff at length. The patient is still having diarrhea reported to be negative. The abdominal and pelvic CAT scan report is reviewed again, indicative of possible hepatic cirrhosis with mild ascites. PHYSICAL EXAMINATION GENERAL: A 48-year-old lady. VITAL SIGNS: Afebrile, with pulse of 84, respiratory rate 20-22, blood pressure 130/74. HEENT: Showed mildly dry oral mucous membrane. Nonicteric sclerae. LUNGS: Few scattered crepitations. Decreased air entry at bases. HEART: Positive S1 and S2. ABDOMEN: Soft, with mild generalized tenderness. No mass or organomegaly. No rebound tenderness or guarding. RECTAL: Guaiac EXTREMITIES: Without edema, clubbing, or cyanosis. NEUROLOGIC: No reported neurological deficit, sensory or motor. IMPRESSION: 1. Gastrointestinal blood loss with Criselda-West tear, treated surgically by endoscopy. 2. . 3. Known history of hypertension, depression, sciatica. 4. Transient ischemic attack by history. SUGGESTIONS: 1. Continue current management. 2. Repeat hemoglobin and hematocrit. 3. The patient may need colonoscopy, when she is more stable clinically. 4. Further recommendations to follow. Elizabeth Knenedy MD
[2018-04-30] MEDS: metroNIDAZOLE IV 500 mg/100 ml 500 MG/100 ML BAG IVPB SCH (03:04)
--- NOTE | 2018-04-30 03:17 | PN ---
DATE: 04/29/2018 SUBJECTIVE: The patient was seen today. She was afebrile. She said she had nausea earlier. She was given some medicine for antiemetic. She also complains of abdominal pain especially after eating she says, and she also had diarrhea. Denies any other symptoms, but she appeared stable. PHYSICAL EXAMINATION: VITAL SIGNS: T-max was 98.4, pulse 77, blood pressure 109/70, and respirations are 20. HEENT: Head is atraumatic, normocephalic. NECK: Supple. LUNGS: Clear. HEART: S1, S2 are regular. ABDOMEN: Soft, flabby, nontender. No guarding, no rigidity present. EXTREMITIES: Have no edema. LABORATORIES: Labs are noted. Labs show white count today is 8.9, hemoglobin 12.7, hematocrit 37.3, platelet count is 220, and her serology came back. RPR is negative. Hepatitis A, B, and C are negative. HIV is negative. Influenza was negative. Toxicology showed vancomycin peak was 21.7 and trough was 9.2. leukocyte quantitatives are negative. Urine has lot of pyuria with wbc's, and chemistry showed BUN is 5 and creatinine is 0.6. LFTs were mildly elevated, and alpha-fetoprotein was 2.5, CEA was 0.9. Micro morrow, the blood cultures came out, 2 sets, which were coagulase-negative staph, which is methicillin-sensitive, oxacillin-sensitive Staph aureus, probably a contaminant. She has no previous admission, no surgeries, no metal in her body, and urine culture was negative. Blood culture repeat was negative on 04/28/2018. ASSESSMENT AND PLAN: Since it is methicillin-sensitive Staph anyway, I have discontinued vancomycin and gentamicin. I left her on Rocephin as well as Flagyl for now. She did come in with abdominal pain, and she does suffer from irritable bowel disease. Her white count was 21.6K when she came in, and now, it has dropped to 8.9 with the treatment. We will repeat the labs tomorrow and see if they are improving further. Etiology of her white count was probably related to her abdominal pain, and she had thickening of multiple loops in the mid abdomen and left abdomen, consistent with nonspecific enteritis. No other abnormal bowel loops are appreciated, and it is improving with treatment. We will switch her back to Rocephin and Flagyl at this time as SHE IS ALLERGIC TO CIPRO. Nahomy Mata MD
[2018-04-30 04:45] LABS: CERULOPLASMIN 34 mg/dL (18-53)
[2018-04-30 07:17] LABS: BASO # 0.1 K/uL (0.0-0.2); EOS # 0.4 K/uL (0.0-0.7); EOS % 3.9 % (0.0-4.0); LYMPH # 2.5 K/uL (1.0-4.3); LYMPH % 27.2 % (20.0-40.0); MEAN CELL VOLUME 83.5 fL (81.0-99.0); MEAN CORPUSCULAR HEMOGLOBIN 28.8 pg (27.0-31.0); MEAN CORPUSCULAR HGB CONC 34.5 g/dL (33.0-37.0); MEAN PLATELET VOLUME 8.3 fL (7.2-11.7); MONO # 0.4 K/uL (0.0-0.8); MONO % 4.4 % (0.0-10.0); NEUT # 5.8 K/uL (1.8-7.0); NEUT % 63.5 % (50.0-75.0); NRBC % 0.1 % (0.0-2.0); RBC 4.16 Mil/uL (3.80-5.20); RED CELL DISTRIBUTION WIDTH 15.1 % (11.5-14.5); WHITE BLOOD COUNT 9.2 K/uL (4.8-10.8)
[2018-04-30 07:31] LABS: ALBUMIN 3.7 g/dL (3.5-5.0); ALT/SGPT 54 U/L (9-52); AST/SGOT 41 U/L (14-36); BLOOD UREA NITROGEN 4 mg/dL (7-17); CALCIUM 8.4 mg/dl (8.6-10.4); GFR NON-AFRICAN AMERICAN > 60
[2018-04-30] MEDS ORDERED: Potassium Chloride 20 mEq ER Tab PO ONE (08:00)
[2018-04-30] MEDS ORDERED: cefTRIAXone 2 GM in Sodium Chloride 0.9% 100 ML IVPB SCH (10:00)
[2018-04-30] MEDS: Saccharomyces Boulardi 250 mg Cap PO SCH ×2 (10:15→17:39)
[2018-04-30] MEDS: buPROPion 150 mg/24 Hours XL Tab PO SCH (10:16)
[2018-04-30] MEDS ORDERED: Peg-Electrolyte Oral Soln 4L (Golytely) PO ONE (11:30)
--- NOTE | 2018-04-30 12:37 | CP.PCM.PN ---
Subjective - Date & Time of Evaluation Date of Evaluation: 04/30/18 Time of Evaluation: 12:20 - Subjective Subjective: dictated Objective - Vital Signs/Intake and Output Vital Signs (last 24 hours): Temp Pulse Resp BP Pulse Ox 98 F 86 20 116/69 96 04/30/18 08:15 04/30/18 08:15 04/30/18 08:15 04/30/18 08:15 04/30/18 08:15 Intake and Output: 04/30/18 04/30/18 06:59 18:59 Intake Total 340 Balance 340 - Medications Medications: Current Medications Bisacodyl (Dulcolax) 10 mg PO ONCE ONE Stop: 04/30/18 17:01 Bupropion HCl (Wellbutrin Xl) 300 mg PO DAILY [facility] Last Admin: 04/30/18 10:16 Dose: 300 mg Dicyclomine HCl (Bentyl) 20 mg PO QID [facility] Last Admin: 04/30/18 10:17 Dose: 20 mg Heparin Sodium (Porcine) (Heparin) 5,000 units SC Q8 [facility] Last Admin: 04/30/18 06:25 Dose: 5,000 units Hydrochlorothiazide (Hydrodiuril) 25 mg PO DAILY [facility] Last Admin: 04/30/18 10:16 Dose: 25 mg Lisinopril (Zestril) 20 mg PO DAILY [facility] Last Admin: 04/30/18 10:16 Dose: 20 mg Metoclopramide HCl (Reglan) 5 mg IVP Q6H [facility] Last Admin: 04/30/18 12:25 Dose: 5 mg Pantoprazole Sodium (Protonix Inj) 40 mg IVP DAILY [facility] Last Admin: 04/30/18 10:15 Dose: 40 mg Saccharomyces Boulardii (Florastor) 250 mg PO BID [facility] Last Admin: 04/30/18 10:15 Dose: 250 mg - Labs Labs: 04/30/18 07:03 04/30/18 07:03 PT 13.5 SECONDS (9.7-12.2) H 04/27/18 16:47 INR 1.2 04/27/18 16:47 APTT 30 SECONDS (21-34) 04/27/18 16:47
--- NOTE | 2018-04-30 13:38 | CP.PCM.PN ---
Subjective - Date & Time of Evaluation Date of Evaluation: 04/30/18 Time of Evaluation: 08:00 - Subjective Subjective: Medicine Progress Note for Dr. Mendoza Patient seen and examined at bedside this AM. Patient denies having upper abdominal pain. She states the diarrhea has stopped. She denies fever, chills, chest pain, shortness of breath, nausea, vomiting, dysuria or hematuria. Objective - Vital Signs/Intake and Output Vital Signs (last 24 hours): Temp Pulse Resp BP Pulse Ox 98 F 86 20 116/69 96 04/30/18 08:15 04/30/18 08:15 04/30/18 08:15 04/30/18 08:15 04/30/18 08:15 Intake and Output: 04/30/18 04/30/18 06:59 18:59 Intake Total 340 Balance 340 - Medications Medications: Current Medications Bisacodyl (Dulcolax) 10 mg PO ONCE ONE Stop: 04/30/18 17:01 Bupropion HCl (Wellbutrin Xl) 300 mg PO DAILY [facility] Last Admin: 04/30/18 10:16 Dose: 300 mg Dicyclomine HCl (Bentyl) 20 mg PO QID [facility] Last Admin: 04/30/18 10:17 Dose: 20 mg Heparin Sodium (Porcine) (Heparin) 5,000 units SC Q8 [facility] Last Admin: 04/30/18 06:25 Dose: 5,000 units Hydrochlorothiazide (Hydrodiuril) 25 mg PO DAILY [facility] Last Admin: 04/30/18 10:16 Dose: 25 mg Lisinopril (Zestril) 20 mg PO DAILY [facility] Last Admin: 04/30/18 10:16 Dose: 20 mg Metoclopramide HCl (Reglan) 5 mg IVP Q6H [facility] Last Admin: 04/30/18 12:25 Dose: 5 mg Pantoprazole Sodium (Protonix Inj) 40 mg IVP DAILY [facility] Last Admin: 04/30/18 10:15 Dose: 40 mg Saccharomyces Boulardii (Florastor) 250 mg PO BID [facility] Last Admin: 04/30/18 10:15 Dose: 250 mg - Labs Labs: 04/30/18 07:03 04/30/18 07:03 PT 13.5 SECONDS (9.7-12.2) H 04/27/18 16:47 INR 1.2 04/27/18 16:47 APTT 30 SECONDS (21-34) 04/27/18 16:47 - Constitutional Appears: No Acute Distress - Head Exam Head Exam: ATRAUMATIC, NORMAL INSPECTION - Eye Exam Eye Exam: EOMI, Normal appearance - ENT Exam ENT Exam: Mucous Membranes Moist - Respiratory Exam Respiratory Exam: Clear to Ausculation Bilateral, NORMAL BREATHING PATTERN - Cardiovascular Exam Cardiovascular Exam: REGULAR RHYTHM, +S1, +S2 - GI/Abdominal Exam GI & Abdominal Exam: Soft, Normal Bowel Sounds. absent: Tenderness Additional comments: Obese abdomen - Extremities Exam Extremities Exam: Normal Inspection - Neurological Exam Neurological Exam: Alert, Awake, Oriented x3 - Psychiatric Exam Psychiatric exam: Normal Affect - Skin Skin Exam: Normal Color, Warm Assessment and Plan - Assessment and Plan (Free Text) Assessment: Assessment: 48 year old female with past medical history of IBS, HTN, Depression was admitted 04/26/18 for abdominal pain and diarrhea. Plan: Abdominal Pain - possibly secondary to Enteritis, Criselda West Tear; Gastritis; Duodenitis, IBS - Normal AFP, CEA, Lipid Panel WNL, HIV neg, RPR negative, Hep Panel negative - Influenza negative - Patient has known history of IBS; diarrhea type; metronidazole 500mg daily - GI Consult: Dr. Gonzalez --> help appreciated - s/p upper endoscopy 04/28/18 - showed Criselda West Tear; Gastritis; Duodenitis (please see full report) - Pathology: Chronic active gastritis; Negative H. Pylori - Colonoscopy as an outpatient - ID Consult: Dr. Mata --> help appreciated - stool leukocytosis negative - Blood Culture: Coagulase Negative Staph --> possible contamination - Repeat Blood Culture (04/28/18): No growth - preliminary - ECHO: The left ventricle is normal size. There is normal left ventricle wall thickness. Left ventricle is boderline. Apical hypokinesis. Cannot rule out thrombus in left ventricle - Medications: * Vanco 1.5g daily --> vanc troph 21.7 --> discontinued 04/30/18 * Metronidazole 500mg q8h --> discontinued * Gentamicin --> discontinued * Rocephin 1g IV q12h * Reglan 5mg IV q6h Abnormal ECHO - ECHO: The left ventricle is normal size. There is normal left ventricle wall thickness. Left ventricle is boderline. Apical hypokinesis. Cannot rule out thrombus in left ventricle - Cardiology Consult: Dr. Betancur --> help appreciated - MAI 05/01/18 - r/o thrombus and endocarditis - ID consult: Dr. Mata --> help appreciated - Rocephin 1g IV q12h Leukocytosis - resolved - possibly secondary to Enteritis - Afebrile - wbc downtrending - Chest xray: Negative Elevated LFTs - Elevated AST/ALT with radiographic evidence of cirrhosis (please see full report) - f/u alpha antitrypsin, PORFIRIO, Mitochondrial, smooth muscle, - copper/ceruloplasmin: negative - nonsmoker, no history of liver disorders in family History of HTN - Continue home medications: * Lisinopril 20mg po daily * HCTZ 25mg po daily History of Depression -c/w buproprion daily Prophylaxis - Protonix 40mg IV daily - Heparin SC - Florastor 250mg bid - SCDs Case discussed and seen with Dr. Kelly Sun PGY-2
--- NOTE | 2018-04-30 15:30 | PN ---
DATE: 04/30/2018 LOCATION: 364, bed A. SUBJECTIVE: This is a [id number] female seen and examined early in rounds with intermittent period of abdominal pain with diarrhea, with a complaint of generalized weakness and malaise, post prandial abdominal distention. The entire chart is reviewed including but not limited to the most recent lab and radiology study results, current and the previous medication list, current and the previous medical events. The patient is still having elevated AST and ALT mildly with low potassium of 3.3 . The patient reports of CAT scan of abdomen and pelvis recently were renewed and the patient was seen by the ID design studio consultant on the case. PHYSICAL EXAMINATION: GENERAL: A 48-year-old female complaining of abdominal pain with diarrhea on and off. VITAL SIGNS: The patient is afebrile with pulse of 82, blood pressure 120/66, respiratory rate 20 to 22. HEENT: Showed dry oral mucous membrane. Nonicteric sclerae. LUNGS: Few scattered crepitation. Decreased air entry at bases. HEART: Positive S1 and S2. ABDOMEN: Soft. Bowel sounds are present. No mass or organomegaly. No rebound tenderness or guarding, but abdominal distention. EXTREMITIES: Without significant clubbing, cyanosis or edema. NEUROLOGIC: No reported new neurological deficits, sensory or motor. IMPRESSION: 1. Recent history of gastrointestinal blood loss with [place] tear. 2. Hypertension, depression history. 3. Transient ischemic attack, by history. 4. Blood culture is positive indicative of septicemia, on antibiotics SUGGESTIONS: 1. Agree with your plan. 2. The patient is for colonoscopy to rule out lower gastrointestinal tract infectious process versus source of gastrointestinal blood loss. Elizabeth Kennedy MD
[2018-04-30] MEDS ORDERED: Bisacodyl 5mg EC Tab PO ONE (17:00)
[2018-04-30] MEDS ORDERED: Enoxaparin 150 mg Syringe SC SCH (17:00)
--- NOTE | 2018-04-30 18:00 | CARD ---
APPROVED REPORT Date of service: 04/27/2018 EKG Measurement Heart [id number] <Conclusion> Normal sinus rhythm Prolonged QT Abnormal ECG
--- NOTE | 2018-04-30 18:07 | PN ---
DATE: 04/30/2018 SUBJECTIVE: This patient was seen today. She is trying to eat and her told me that attending wants to send her home. She is symptom-free and she did receive some medication. She has a history of IBS, but says her pain is much better right now. He does have social issues also with her. PHYSICAL EXAMINATION: VITAL SIGNS: T-max today was 99, blood pressure of 116/69, respirations are 20, heart rate is 86. HEENT: Head is atraumatic. NECK: Supple. LUNGS: Clear. No crackles or rales present. HEART: S1 and S2 is regular. ABDOMEN: Soft, flabby, nontender. No guarding. No rigidity present. EXTREMITIES: Have no edema. She is; however, obese and her weight is 300 pounds. LABORATORY DATA: White count is today 9.2, yesterday was 8.9, hemoglobin is 12, hematocrit 34.7, platelet count is 212 and her potassium is 3.3, they are probably supplementing it. I had discontinued vancomycin and gentamicin yesterday, two sets of blood culture had coagulase-negative staph, which is probably a contaminant because the repeat cultures were negative, which was done prior to giving vancomycin. Her white count has come down beautifully and we also did an echo and echo shows the left ventricle of normal size. There is normal left ventricle, left ventricular border, apical hypokinesis, left ventricle is borderline transmitter, cannot rule out thrombus in the left ventricle. ASSESSMENT AND PLAN: I am going to check with Dr. Mcintyre what next to be done as they cannot rule out thrombus. We will follow. Nahomy Mata MD
--- NOTE | 2018-04-30 20:22 | CP.PCM.CON ---
History of Present Illness - History of Present Illness History of Present Illness: Resaon For Consultation: R/O Endocarditis and LV thrombus Patient seen and examined at bedside. Patient denies having upper abdominal pain. She states the diarrhea has stopped. She denies fever, chills, chest pain, shortness of breath, nausea, vomiting, dysuria or hematuria. Objective - Vital Signs/Intake and Output Vital Signs (last 24 hours): Temp Pulse Resp BP Pulse Ox 98 F 86 20 116/69 96 04/30/18 08:15 04/30/18 08:15 04/30/18 08:15 04/30/18 08:15 04/30/18 08:15 Intake and Output: 04/30/18 04/30/18 06:59 18:59 Intake Total 340 Balance 340 - Medications Medications: Current Medications Bisacodyl (Dulcolax) 10 mg PO ONCE ONE Stop: 04/30/18 17:01 Bupropion HCl (Wellbutrin Xl) 300 mg PO DAILY [facility] Last Admin: 04/30/18 10:16 Dose: 300 mg Dicyclomine HCl (Bentyl) 20 mg PO QID [facility] Last Admin: 04/30/18 10:17 Dose: 20 mg Heparin Sodium (Porcine) (Heparin) 5,000 units SC Q8 [facility] Last Admin: 04/30/18 06:25 Dose: 5,000 units Hydrochlorothiazide (Hydrodiuril) 25 mg PO DAILY [facility] Last Admin: 04/30/18 10:16 Dose: 25 mg Lisinopril (Zestril) 20 mg PO DAILY [facility] Last Admin: 04/30/18 10:16 Dose: 20 mg Metoclopramide HCl (Reglan) 5 mg IVP Q6H [facility] Last Admin: 04/30/18 12:25 Dose: 5 mg Pantoprazole Sodium (Protonix Inj) 40 mg IVP DAILY [facility] Last Admin: 04/30/18 10:15 Dose: 40 mg Saccharomyces Boulardii (Florastor) 250 mg PO BID [facility] Last Admin: 04/30/18 10:15 Dose: 250 mg - Labs Labs: 04/30/18 07:03 04/30/18 07:03 PT 13.5 SECONDS (9.7-12.2) H 04/27/18 16:47 INR 1.2 04/27/18 16:47 APTT 30 SECONDS (21-34) 04/27/18 16:47 - Constitutional Appears: No Acute Distress - Head Exam Head Exam: ATRAUMATIC, NORMAL INSPECTION - Eye Exam Eye Exam: EOMI, Normal appearance - ENT Exam ENT Exam: Mucous Membranes Moist - Respiratory Exam Respiratory Exam: Clear to Ausculation Bilateral, NORMAL BREATHING PATTERN - Cardiovascular Exam Cardiovascular Exam: REGULAR RHYTHM, +S1, +S2 - GI/Abdominal Exam GI & Abdominal Exam: Soft, Normal Bowel Sounds. absent: Tenderness Additional comments: Obese abdomen - Extremities Exam Extremities Exam: Normal Inspection - Neurological Exam Neurological Exam: Alert, Awake, Oriented x3 - Psychiatric Exam Psychiatric exam: Normal Affect - Skin Skin Exam: Normal Color, Warm Assessment and Plan - Assessment and Plan (Free Text) Assessment: Assessment: 48 year old female with past medical history of IBS, HTN, Depression was admitted 04/26/18 for abdominal pain and diarrhea. Plan: Abdominal Pain - possibly secondary to Enteritis, [place] Tear; Gastritis; Duodenitis, IBS - Normal AFP, CEA, Lipid Panel WNL, HIV neg, RPR negative, Hep Panel negative - Influenza negative - Patient has known history of IBS; diarrhea type; metronidazole 500mg daily - GI Consult: Dr. Gonzalez --> help appreciated - s/p upper endoscopy 04/28/18 - showed [place] Tear; Gastritis; Duodenitis (please see full report) - Pathology: Chronic active gastritis; Negative H. Pylori - Colonoscopy as an outpatient - ID Consult: Dr. Mata --> help appreciated - stool leukocytosis negative - Blood Culture: Coagulase Negative Staph --> possible contamination - Repeat Blood Culture (04/28/18): No growth - preliminary - ECHO: The left ventricle is normal size. There is normal left ventricle wall thickness. Left ventricle is boderline. Apical hypokinesis. Cannot rule out thrombus in left ventricle - Medications: * Vanco 1.5g daily --> vanc troph 21.7 --> discontinued 04/30/18 * Metronidazole 500mg q8h --> discontinued * Gentamicin --> discontinued * Rocephin 1g IV q12h * Reglan 5mg IV q6h Abnormal ECHO - ECHO: The left ventricle is normal size. There is normal left ventricle wall thickness. Left ventricle is boderline. Apical hypokinesis. Cannot rule out thrombus in left ventricle - MAI 05/01/18 - r/o thrombus and endocarditis - ID consult: Dr. Mata --> help appreciated - Rocephin 1g IV q12h Leukocytosis - resolved - possibly secondary to Enteritis - Afebrile - wbc downtrending - Chest xray: Negative Elevated LFTs - Elevated AST/ALT with radiographic evidence of cirrhosis (please see full report) - f/u alpha antitrypsin, PORFIRIO, Mitochondrial, smooth muscle, - copper/ceruloplasmin: negative - nonsmoker, no history of liver disorders in family History of HTN - Continue home medications: * Lisinopril 20mg po daily * HCTZ 25mg po daily History of Depression -c/w buproprion daily Prophylaxis - Protonix 40mg IV daily - Heparin SC - Florastor 250mg bid - SCDs Past Patient History - Past Medical History & Family History Past Medical History?: Yes - Past Social History Smoking Status: Never Smoked - CARDIAC Hx Hypertension: Yes - PULMONARY Hx Respiratory Disorders: No - NEUROLOGICAL Hx Transient Ischemic Attacks (TIA): Yes (2 years ago) - HEENT Hx HEENT Problems: No - RENAL Hx Chronic Kidney Disease: No - ENDOCRINE/METABOLIC Hx Endocrine Disorders: No - HEMATOLOGICAL/ONCOLOGICAL Hx Blood Disorders: No - INTEGUMENTARY Hx Dermatological Problems: No - MUSCULOSKELETAL/RHEUMATOLOGICAL Hx Falls: No - GASTROINTESTINAL Hx Gall Bladder Disease: Yes - GENITOURINARY/GYNECOLOGICAL Hx Genitourinary Disorders: No - PSYCHIATRIC Hx Substance Use: No - SURGICAL HISTORY Hx Cholecystectomy: Yes - ANESTHESIA Hx Anesthesia: Yes Hx Anesthesia Reactions: No Meds Allergies/Adverse Reactions: Allergies Allergy/AdvReac Type Severity Reaction Status Date / Time ciprofloxacin [From Cipro] Allergy throat Verified 04/26/18 13:57 swelling - Medications Medications: Current Medications Bupropion HCl (Wellbutrin Xl) 300 mg PO DAILY [facility] Last Admin: 04/30/18 10:16 Dose: 300 mg Dicyclomine HCl (Bentyl) 20 mg PO QID [facility] Last Admin: 04/30/18 17:39 Dose: 20 mg Enoxaparin Sodium (Lovenox) 140 mg SC Q12H [facility] Hydrochlorothiazide (Hydrodiuril) 25 mg PO DAILY [facility] Last Admin: 04/30/18 10:16 Dose: 25 mg Ceftriaxone Sodium 1 gm/ (Sodium Chloride) 100 mls @ 100 mls/hr IVPB Q12H [facility]; Protocol Last Admin: 04/30/18 17:00 Dose: 100 mls/hr Lisinopril (Zestril) 20 mg PO DAILY [facility] Last Admin: 04/30/18 10:16 Dose: 20 mg Metoclopramide HCl (Reglan) 5 mg IVP Q6H [facility] Last Admin: 04/30/18 19:07 Dose: 5 mg Pantoprazole Sodium (Protonix Inj) 40 mg IVP DAILY [facility] Last Admin: 04/30/18 10:15 Dose: 40 mg Saccharomyces Boulardii (Florastor) 250 mg PO BID [facility] Last Admin: 04/30/18 17:39 Dose: 250 mg Results - Vital Signs Recent Vital Signs: Last Vital Signs Temp 98.4 F 04/30/18 15:00 Pulse 70 04/30/18 15:00 Resp 20 04/30/18 15:00 BP 125/82 04/30/18 15:00 Pulse Ox 96 04/30/18 15:00 - Labs Result Diagrams: 04/30/18 07:03 04/30/18 07:03 Labs: Laboratory Results - last 24 hr 04/28/18 04/28/18 04/30/18 17:44 17:44 07:03 WBC 9.2 RBC 4.16 Hgb 12.0 Hct 34.7 MCV 83.5 MCH 28.8 MCHC 34.5 RDW 15.1 H Plt Count 212 MPV 8.3 Neut % (Auto) 63.5 Lymph % (Auto) 27.2 [place] % (Auto) 4.4 Eos % (Auto) 3.9 Baso % (Auto) 1.0 Neut # (Auto) 5.8 Lymph # (Auto) 2.5 [place] # (Auto) 0.4 Eos # (Auto) 0.4 Baso # (Auto) 0.1 Sodium Potassium Chloride Carbon Dioxide Anion Gap BUN Creatinine Est GFR ( Amer) Est GFR (Non-Af Amer) Random Glucose Calcium Phosphorus Magnesium Total Bilirubin AST ALT Alkaline Phosphatase Total Protein Albumin Globulin Albumin/Globulin Ratio Ceruloplasmin 34 PORFIRIO Nuclear Membr Pat Negative Anti-Mitochondrial Ab Negative 04/30/18 07:03 WBC RBC Hgb Hct MCV MCH MCHC RDW Plt Count MPV Neut % (Auto) Lymph % (Auto) [place] % (Auto) Eos % (Auto) Baso % (Auto) Neut # (Auto) Lymph # (Auto) [place] # (Auto) Eos # (Auto) Baso # (Auto) Sodium 137 Potassium 3.3 L Chloride 100 Carbon Dioxide 29 Anion Gap 12 BUN 4 L Creatinine 0.7 Est GFR ( Amer) > 60 Est GFR (Non-Af Amer) > 60 Random Glucose 105 Calcium 8.4 L Phosphorus 4.6 H Magnesium 1.9 Total Bilirubin 0.4 AST 41 H ALT 54 H Alkaline Phosphatase 98 Total Protein 7.4 Albumin 3.7 Globulin 3.7 Albumin/Globulin Ratio 1.0 Ceruloplasmin PORFIRIO Nuclear Membr Pat Anti-Mitochondrial Ab
[2018-04-30] MEDS: Enoxaparin 150 mg Syringe SC SCH (21:17)
[2018-05-01 08:07] VITALS: BP 115/70; PULSE 74; TEMP 98.3; O2SAT 96
[2018-05-01 08:07] LABS: BASO # 0.1 K/uL (0.0-0.2); EOS # 0.3 K/uL (0.0-0.7); EOS % 2.9 % (0.0-4.0); HEMOGLOBIN 11.7 g/dL (11.0-16.0); LYMPH # 2.6 K/uL (1.0-4.3); LYMPH % 26.3 % (20.0-40.0); MEAN CELL VOLUME 82.9 fL (81.0-99.0); MEAN CORPUSCULAR HEMOGLOBIN 29.1 pg (27.0-31.0); MEAN CORPUSCULAR HGB CONC 35.1 g/dL (33.0-37.0); MEAN PLATELET VOLUME 8.3 fL (7.2-11.7); MONO # 0.5 K/uL (0.0-0.8); MONO % 4.7 % (0.0-10.0); NEUT # 6.3 K/uL (1.8-7.0); NEUT % 65.1 % (50.0-75.0); RBC 4.01 Mil/uL (3.80-5.20); RED CELL DISTRIBUTION WIDTH 14.6 % (11.5-14.5); WHITE BLOOD COUNT 9.7 K/uL (4.8-10.8)
[2018-05-01 08:36] LABS: ALBUMIN 3.5 g/dL (3.5-5.0); ALT/SGPT 44 U/L (9-52); AST/SGOT 34 U/L (14-36); BLOOD UREA NITROGEN 6 mg/dL (7-17); CALCIUM 8.1 mg/dl (8.6-10.4); GFR NON-AFRICAN AMERICAN > 60
[2018-05-01] MEDS: Enoxaparin 150 mg Syringe SC SCH ×2 (09:00)
[2018-05-01] MEDS: Saccharomyces Boulardi 250 mg Cap PO SCH ×2 (09:35→10:50)
--- NOTE | 2018-05-01 09:36 | CP.PCM.PN ---
Subjective - Date & Time of Evaluation Date of Evaluation: 05/01/18 Time of Evaluation: 08:00 - Subjective Subjective: Medicine Progress Note for Dr. Mendoza Patient seen and examined at bedside this AM. Patient denies having upper abdominal pain. Patient states she is ready to go home. She denies fever, chills, chest pain, shortness of breath, nausea, vomiting, dysuria or hematuria. Objective - Vital Signs/Intake and Output Vital Signs (last 24 hours): Temp Pulse Resp BP Pulse Ox 98.3 F 74 20 115/70 96 05/01/18 08:04 05/01/18 08:04 05/01/18 08:04 05/01/18 08:04 05/01/18 08:04 Intake and Output: 05/01/18 05/01/18 06:59 18:59 Intake Total 100 Balance 100 - Medications Medications: Current Medications Bupropion HCl (Wellbutrin Xl) 300 mg PO DAILY [facility] Last Admin: 04/30/18 10:16 Dose: 300 mg Dicyclomine HCl (Bentyl) 20 mg PO QID [facility] Last Admin: 04/30/18 21:17 Dose: 20 mg Enoxaparin Sodium (Lovenox) 140 mg SC Q12H [facility] Last Admin: 04/30/18 21:17 Dose: 140 mg Hydrochlorothiazide (Hydrodiuril) 25 mg PO DAILY [facility] Last Admin: 04/30/18 10:16 Dose: 25 mg Ceftriaxone Sodium 1 gm/ (Sodium Chloride) 100 mls @ 100 mls/hr IVPB Q12H [facility]; Protocol Last Admin: 05/01/18 04:29 Dose: 100 mls/hr Lisinopril (Zestril) 20 mg PO DAILY [facility] Last Admin: 04/30/18 10:16 Dose: 20 mg Metoclopramide HCl (Reglan) 5 mg IVP Q6H [facility] Last Admin: 05/01/18 08:00 Dose: 5 mg Pantoprazole Sodium (Protonix Inj) 40 mg IVP DAILY [facility] Last Admin: 04/30/18 10:15 Dose: 40 mg Potassium Chloride (K-Dur 20 Meq Er Tab) 20 meq PO ONCE ONE Stop: 05/01/18 15:01 Saccharomyces Boulardii (Florastor) 250 mg PO BID [facility] Last Admin: 04/30/18 17:39 Dose: 250 mg - Labs Labs: 05/01/18 07:58 05/01/18 07:58 PT 13.5 SECONDS (9.7-12.2) H 04/27/18 16:47 INR 1.2 04/27/18 16:47 APTT 30 SECONDS (21-34) 04/27/18 16:47 - Constitutional Appears: No Acute Distress - Head Exam Head Exam: ATRAUMATIC, NORMAL INSPECTION - Eye Exam Eye Exam: EOMI, Normal appearance - ENT Exam ENT Exam: Mucous Membranes Moist - Respiratory Exam Respiratory Exam: Clear to Ausculation Bilateral, NORMAL BREATHING PATTERN - Cardiovascular Exam Cardiovascular Exam: REGULAR RHYTHM, +S1, +S2 - GI/Abdominal Exam GI & Abdominal Exam: Soft, Normal Bowel Sounds. absent: Tenderness - Extremities Exam Extremities Exam: Normal Inspection - Neurological Exam Neurological Exam: Alert, Awake, Oriented x3 - Psychiatric Exam Psychiatric exam: Normal Affect - Skin Skin Exam: Warm Assessment and Plan - Assessment and Plan (Free Text) Assessment: Assessment: 48 year old female with past medical history of IBS, HTN, Depression was admitted 04/26/18 for abdominal pain and diarrhea. Plan: Abdominal Pain - possibly secondary to Enteritis, [place] Tear; Gastritis; Duodenitis, IBS - Normal AFP, CEA, Lipid Panel WNL, HIV neg, RPR negative, Hep Panel negative - Influenza negative - Patient has known history of IBS; diarrhea type; metronidazole 500mg daily - GI Consult: Dr. Gonzalez --> help appreciated - s/p upper endoscopy 04/28/18 - showed [place] Tear; Gastritis; Duodenitis (please see full report) - Pathology: Chronic active gastritis; Negative H. Pylori - Colonoscopy as an outpatient - ID Consult: Dr. Mata --> help appreciated - stool leukocytosis negative - Blood Culture: Coagulase Negative Staph --> possible contamination - Repeat Blood Culture (04/28/18): No growth - preliminary - ECHO: The left ventricle is normal size. There is normal left ventricle wall thickness. Left ventricle is boderline. Apical hypokinesis. Cannot rule out thrombus in left ventricle - Medications: * Vanco 1.5g daily --> vanc troph 21.7 --> discontinued 04/30/18 * Metronidazole 500mg q8h --> discontinued * Gentamicin --> discontinued * Rocephin 1g IV q12h * Reglan 5mg IV q6h Abnormal ECHO - ECHO: The left ventricle is normal size. There is normal left ventricle wall thickness. Left ventricle is boderline. Apical hypokinesis. Cannot rule out thrombus in left ventricle - Lovenox 140mg q12h - discontinued - Cardiology Consult: Dr. Betancur --> help appreciated - MAI 05/01/18: Negative - ID consult: Dr. Mata --> help appreciated - Rocephin 1g IV q12h - discontinued Leukocytosis - resolved - possibly secondary to Enteritis - Afebrile - wbc downtrending - Chest xray: Negative Elevated LFTs - Elevated AST/ALT with radiographic evidence of cirrhosis (please see full report) - f/u alpha antitrypsin, PORFIRIO, Mitochondrial, smooth muscle, - copper/ceruloplasmin: negative - nonsmoker, no history of liver disorders in family History of HTN - Continue home medications: * Lisinopril 20mg po daily * HCTZ 25mg po daily History of Depression -c/w buproprion daily Prophylaxis - Protonix 40mg IV daily - Heparin SC - Florastor 250mg bid - SCDs Disposition: Patient discharged home. Patient started on pepcid 20mg bid. Patient to follow up with GI as an outpatient to schedule an outpatient colonoscopy. Patient to follow up with PMD 1-2 weeks. Case discussed and seen with Dr. Kelly Sun PGY-2
[2018-05-01] MEDS: buPROPion 150 mg/24 Hours XL Tab PO SCH ×3 (09:41→14:01)
[2018-05-01] MEDS ORDERED: Perflutren Lipid Microsphere 1.5 ML SUS IV ONE (10:57)
[2018-05-01] MEDS ORDERED: Potassium Chloride 20 mEq ER Tab PO ONE (15:00)
--- NOTE | 2018-05-01 15:52 | PN ---
DATE: 05/01/2018 LOCATION: 364, bed A. SUBJECTIVE: This is a 48-year-old female seen and examined in rounds without reported significant clinical changes, with less abdominal pain and less abdominal distention. No reported active bleeding. The entire chart is reviewed including but not limited to the most recent lab and radiology study results, current and the previous medication list, current and the previous medical events, allergy to medication list. Case discussed with at length and the patient was seen by the crm consultant on the case, Dr. Alpesh Betancur. The patient denied any actual chest pain, palpitation, no significant shortness of breath, with much less bowel movement frequency. Echocardiogram report is seen. LABORATORY DATA: Today's lab results showed low hematocrit of 33.2, potassium 3.4 with low BUN and creatinine, calcium 8.4 with phosphorus 4.8, but normal liver function test so far. Cancer markers were reported to be normal. PHYSICAL EXAMINATION: GENERAL: A 48-year-old female, appears to be awake, alert and oriented. VITAL SIGNS: Afebrile with blood pressure 120/72, respiratory rate 20 to 22. HEENT: Showed pale, dry oral mucous membrane mildly. Nonicteric sclerae. LUNGS: Few scattered crepitation with slight decrease of air entry bilaterally. HEART: Positive S1 and S2. ABDOMEN: Soft. Bowel sounds are present. No mass or organomegaly. No rebound tenderness or guarding. EXTREMITIES: Without significant clubbing, cyanosis or edema. NEUROLOGICAL: No reported new neurological deficits, sensory or motor. SUGGESTIONS: 1. Agree with your plan. 2. Antireflux measure. 3. The patient for potential colonoscopy. Elizabeth Kennedy MD
--- NOTE | 2018-05-01 17:32 | CARD ---
APPROVED REPORT Date of service: 05/01/2018 EXAM: Two-dimensional echocardiogram with contrast. Other Information Quality : GoodRhythm : INDICATION Thrombus Echo Enhancing Agent Indication: Rule out thrombus Agent/Amount Used: Definity LEFT VENTRICLE No left ventricle thrombus noted on this image enhanced study with Definity <Conclusion> LIMITED STUDY USING IV CONTRAST WITH DEFINITY No left ventricle thrombus noted on this image enhanced study with Definity
== END 2018-05-01 15:05 | disposition home or self-care (01) | DRG 871 ==
LOC: C.ER 13:40 → UNDOADMOB 17:48 → C.9E 17:48 → OBSVTOIN 04-27 07:45 → C.3T 04-27 21:23
PROVIDERS: ADMIT Internal Medicine Pulmonary Disease; ATTEND Internal Medicine Pulmonary Disease
PROC: 3E0G8GC Introduction of Other Therapeutic Substance into Upper GI, Via Natural or Artificial Opening Endoscopic (ICD-10-PCS; 2018-04-28)
PROC: 0DB68ZX Excision of Stomach, Via Natural or Artificial Opening Endoscopic, Diagnostic (ICD-10-PCS; principal; 2018-04-28 12:33)
DX: A41.9 Sepsis, unspecified organism (principal); K22.6 Gastro-esophageal laceration-hemorrhage syndrome; N39.0 Urinary tract infection, site not specified; Z68.42 Body mass index [BMI] 45.0-49.9, adult; F17.200 Nicotine dependence, unspecified, uncomplicated; I10 Essential (primary) hypertension; K29.70 Gastritis, unspecified, without bleeding; K29.80 Duodenitis without bleeding; F32.9 Major depressive disorder, single episode, unspecified; Z86.73 Personal history of transient ischemic attack (TIA), and cerebral infarction without residual deficits; K74.60 Unspecified cirrhosis of liver; K58.9 Irritable bowel syndrome, unspecified; E66.01 Morbid (severe) obesity due to excess calories